=== PATIENT | female | born 1975 | race Hispanic/Latino ===

== ENCOUNTER 2016-08-13 18:30 | Emergency (ER) | payer SELFPAY ==
[2016-08-13] MEDS ORDERED: KETOROLAC 30 MG/ML VIAL (J1885) As Ordered ONE (19:43)
--- NOTE | 2016-08-13 20:30 | REPUSA ---
CT of the head Clinical history: Headache. Technique: Multiple axial CT images were obtained through the head without administration of contrast . Findings: The ventricles and sulci are symmetric bilaterally. There is no evidence of acute hemorrhag e or infarct. There is no midline shift, mass effect, or extra-axial fluid collection. The osseous st ructures are unremarkable. There is partial fluid opacification of the right sphenoid sinus. The othe r visualized paranasal sinuses and mastoid air cells are clear. Impression: No evidence of acute hemorrhage or infarct. Right sphenoid sinusitis.
--- NOTE | 2016-08-13 21:03 | EDDOCDS ---
Nurse's Notes [facility] Name: Tasneem Severino Age: 41 yrs Sex: Female : 1975 Arrival Date: 08/13/2016 Time: 18:30 Bed PR Private MD: NO PRIMARY PHYSICIAN, . Diagnosis: Headache;Acute sinusitis, unspecified Presentation: 08/13 18:36 Presenting complaint: Patient states: pain n head just today. fever for 7 days ( srm undocumented) no nausea or vomiting. dizzy. This patient has no additional risk factors. Adult Sepsis Screening: The patient does not have new or worsening altered mentation. Patient's respiratory rate is less than 22. Systolic blood pressure is greater than 100. Patient has a qSOFA score of 0- Negative Sepsis Screen. Suicide/Homicide risk assessment- the patient denies having any suicidal and/or homicidal ideations and does not present with any other emotional, behavioral or mental health complaints. Status: Patient is not a immigration services officer or dependent. Transition of care: patient was not received from another setting of care. 18:36 Acuity: AMAYA Level 3 srm 18:36 Method Of Arrival: Walkin/Carried/Asstd srm Triage Assessment: 18:39 Headache History: This patient does not have a history of previous headaches. General: srm Appears in no apparent distress, Behavior is appropriate for age, cooperative. Pain: Pain currently is 2 out of 10 on a pain scale. Pain began gradually Also complains of dizziness. HIV screening NA for this visit Offered previously. Neurological: Level of Consciousness is awake, alert, Oriented to person, place. 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 none - PMHx: none; - PSHx: ; Appendectomy; - Social history: Smoking status: Patient states was never smoker of tobacco. Preferred Language: Welsh. - Family history: Not pertinent. - : The pt / caregiver states he / she is not on anticoagulants. Home medication list is obtained from the patient. - Exposure Risk Screening:: None identified. Screenin:39 Language Barrier. rs6 21:02 Screening information is obtained from the patient. Fall risk: No risks identified. slm Assistance ADL's: requires no assistance with activities of daily living. Abuse/DV Screen: The patient / caregiver reports he/she is: not in a situation that causes fear, pain or injury. Nutritional screening: No deficits noted. Advance Directives: Currently, there is no health care proxy. There is no active DNR order. There is no living will. There is no Power of Stretcher Drier Operator. Advance directive information has not previously been placed in an [facility] medical record. Further advance directive information is declined. home support is adequate. Assessment: 21:01 General: Appears in no apparent distress, comfortable, Behavior is appropriate for age, slm cooperative. Pain: Location: face. Neurological: Level of Consciousness is awake, alert. Respiratory: No deficits noted. Derm: Skin is pink, warm & dry. Vital Signs: 18:34 BP 145 / 66 RA Sitting (auto/lg); Pulse 89; Resp 16; Temp 99.5(O); Pulse Ox 99% on R/A; rs6 Weight 72.57 kg (R); Height 5 ft. 2 in. (160 cm); 21:00 BP 132 / 62; Pulse 78; Resp 16; Pulse Ox 99% ; Pain 3/10; slm 18:34 Body Mass Index 28.35 (72.57 kg, 160 cm) [facility] Vitals: 18:34 Log In Time: August 13, 2016 at 18:34. [facility] ED Course: 18:32 Patient visited by Maryana Hicks PCA. rs6 18:32 NO PRIMARY PHYSICIAN, . is Private Physician. rs6 18:32 Patient moved to Waiting rs6 18:36 Patient visited by Maryana Hicks PCA. rs6 18:36 Patient moved to Pre RCE rs6 18:38 Triage Initiated srm 18:40 Patient moved to Triage 1 srm 19:15 [facility] Willard [facility] dt4 19:15 Osito Longo DO is Attending Physician. dt4 19:15 Patient visited by Jaycee Willard PA-C. dt4 19:49 [facility] Payment Agreement was scanned into [employer] and attached to record. ks16 19:57 Patient name changed from Tasneem\S\\S\Maycol\S\ to Tasneem\S\ \S\Maycol. EDMS 19:58 Patient moved to 2 slm 20:37 [facility] is Referral Physician. dt4 20:42 Patient moved to PD2 / 27 slm 20:43 Patient moved to PR1 / 25 sl 20:45 CT Head Without Contrast Returned. EDMS 21:00 Keisha Fine LPN is Primary Nurse. slm 21:02 Patient visited by Keisha Fine LPN. slm 21:02 The patient / caregiver is instructed regarding the plan of care and ED course. Patient slm has correct armband on for positive identification. Bed in low position. Call light in reach. 21:02 No IV's were initiated during this patient's visit. No procedures done that require slm assistance. Administered Medications: 19:49 Drug: ketorolac 60 mg [ketorolac 30 mg/mL (1 mL) injection solution (2 mL)] Route: IM; slm Site: right gluteus; Order Results: Radiology Order: CT Head Without Contrast Test: CT Head Without Contrast REASON FOR EXAMINATION: headache; ; CT of the head; Clinical history: Headache.; Technique: Multiple axial CT images were obtained through the head without administration of contrast; .; Findings: The ventricles and sulci are symmetric bilaterally. There is no evidence of acute hemorrhag; e or infarct. There is no midline shift, mass effect, or extra-axial fluid collection. The osseous st; ructures are unremarkable. There is partial fluid opacification of the right sphenoid sinus. The othe; r visualized paranasal sinuses and mastoid air cells are clear.; Impression: No evidence of acute hemorrhage or infarct. Right sphenoid sinusitis.; ; Outcome: 20:38 Discharge ordered by Provider. dt4 21:01 Discharge Assessment: Patient awake, alert and oriented x 3. No cognitive and/or slm functional deficits noted. Patient verbalized understanding of disposition instructions. patient administered narcotics - no. The following High Risk Discharge criteria are identified: None. Discharged to home ambulatory. Condition: good. Discharge instructions given to patient, Instructed on discharge instructions, follow up and referral plans. medication usage, Demonstrated understanding of instructions, medications, Pt was receptive of discharge instructions/ teaching. Prescriptions given X 2. CT Study completed. Property :Personal belongings accompany Pt. 21:02 Patient left the ED. slm Signatures: Dispatcher [employer] EDMS Mihaela Smith, TARIQ RN Keisha Boone,RN ORTHOPEDIC RN ORTHOPEDIC m Jaycee Willard PA-C PA-C dt4 Maryana Hicks, NEWSPAPER REPORTER NEWSPAPER REPORTER rs6 Celena Gillespie, Reg Reg ks16 MTDD
--- NOTE | 2016-08-13 21:03 | EDDOCDS ---
Physician Documentation [facility] Name: Tasneem Severino Age: 41 yrs Sex: Female : 1975 Arrival Date: 08/13/2016 Time: 18:30 Bed PR1 / 25 Private MD: NO PRIMARY PHYSICIAN, . Disposition: 08/13/16 20:38 Discharged to Home/Self Care. Impression: Headache, Acute sinusitis, unspecified. - Condition is Stable. - Discharge Instructions: General Headache Without Cause, Sinusitis, Adult. - Prescriptions for Augmentin 875- 125 mg Oral Tablet - take 1 tablet by ORAL route every 12 hours for 7 days; 14 tablet. Naprosyn 500 mg Oral Tablet - take 1 tablet by ORAL route every 12 hours As needed take with food; 30 tablet. - Medication Reconciliation, Local Pharmacy Hours form. - Follow up: Emergency Department; When: As needed; Reason: Worsening of conditions. [facility]: [facility]; When: Call to arrange an appointment; Reason: Recheck today's complaints, Continuance of care, To establish care. - Problem is new. - Symptoms have improved. Historical: - Allergies: no known allergies; - Home Meds: 1. none - PMHx: none; - PSHx: ; Appendectomy; - Social history: Smoking status: Patient states was never smoker of tobacco. Preferred Language: Colombian. - Family history: Not pertinent. - : The pt / caregiver states he / she is not on anticoagulants. Home medication list is obtained from the patient. - Exposure Risk Screening:: None identified. 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 2 in. (160 cm); 21:00 BP 132 / 62; Pulse 78; Resp 16; Pulse Ox 99% ; Pain 3/10; slm 18:34 Body Mass Index 28.35 (72.57 kg, 160 cm) rs6 MDM: 19:38 ketorolac 60 mg IM once ordered. dt4 19:38 Financial registration complete. ks16 19:38 CT Head Without Contrast Ordered. EDMS 19:49 [facility] Payment Agreement was scanned into [employer] and attached to record. [email or web address] Administered Medications: 19:49 Drug: ketorolac 60 mg [ketorolac 30 mg/mL (1 mL) injection solution (2 mL)] Route: IM; slm Site: right gluteus; Signatures: Dispatcher [employer] EDMS Mihaela Smith RN RN Keisha Boone,SUSY COMPONENT DESIGN ENGINEER [facility] Jaycee Willard PA-C PAAlicia dt4 Celena Gillespie, Reg Reg ks16 The chart was reviewed and I authenticate all verbal orders and agree with the evaluation and treatment provided.Attachments: 19:49 [facility] Payment Agreement [email or web address] MTDD
--- NOTE | 2016-08-15 22:03 | EDDOCDS ---
Physician Documentation [facility] Name: Tasneem Severino Age: 41 yrs Sex: Female : 1975 Arrival Date: 08/13/2016 Time: 18:30 Bed PR1 / 25 Private MD: NO PRIMARY PHYSICIAN, . Disposition: 08/13/16 20:38 Discharged to Home/Self Care. Impression: Headache, Acute sinusitis, unspecified. - Condition is Stable. - Discharge Instructions: General Headache Without Cause, Sinusitis, Adult. - Prescriptions for Augmentin 875- 125 mg Oral Tablet - take 1 tablet by ORAL route every 12 hours for 7 days; 14 tablet. Naprosyn 500 mg Oral Tablet - take 1 tablet by ORAL route every 12 hours As needed take with food; 30 tablet. - Medication Reconciliation, Local Pharmacy Hours form. - Follow up: Emergency Department; When: As needed; Reason: Worsening of conditions. [facility]: [facility]; When: Call to arrange an appointment; Reason: Recheck today's complaints, Continuance of care, To establish care. - Problem is new. - Symptoms have improved. Historical: - Allergies: no known allergies; - Home Meds: 1. none - PMHx: none; - PSHx: ; Appendectomy; - Social history: Smoking status: Patient states was never smoker of tobacco. Preferred Language: Micronesian. - Family history: Not pertinent. - : The pt / caregiver states he / she is not on anticoagulants. Home medication list is obtained from the patient. - Exposure Risk Screening:: None identified. 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 2 in. (160 cm); 21:00 BP 132 / 62; Pulse 78; Resp 16; Pulse Ox 99% ; Pain 3/10; slm 18:34 Body Mass Index 28.35 (72.57 kg, 160 cm) rs6 MDM: 19:38 ketorolac 60 mg IM once ordered. dt4 19:38 Financial registration complete. ks16 19:38 CT Head Without Contrast Ordered. EDMS 19:49 [facility] Payment Agreement was scanned into [employer] and attached to record. [email or web address] 08/14 10:52 T-Sheet-- Draft Copy was scanned into [employer] and attached to record. gb Administered Medications: 08/13 19:49 Drug: ketorolac 60 mg [ketorolac 30 mg/mL (1 mL) injection solution (2 mL)] Route: IM; slm Site: right gluteus; Signatures: Dispatcher [employer] EDMS Mihaela Smith, RN RN [facility] Micki Ojeda, Reg Reg gb Keisha Fine LPN FURNITURE DETAILER slm Jaycee Willard PA-C PA-C dt4 Celena Gillespie, Reg Reg ks16 The chart was reviewed and I authenticate all verbal orders and agree with the evaluation and treatment provided.Attachments: 19:49 [facility] Payment Agreement [email or web address] 08/14 10:52 T-Sheet-- Draft Copy gb Chart Complete MTDD
--- NOTE | 2016-08-15 22:03 | EDDOCDS ---
[facility] Name: Tasneem Severino Age: 41 yrs Sex: Female : 1975 Arrival Date: 08/13/2016 Time: 18:30 Bed PR Private MD: NO PRIMARY PHYSICIAN, . Diagnosis: Headache;Acute sinusitis, unspecified Presentation: 08/13 18:36 Presenting complaint: Patient states: pain n head just today. fever for 7 days ( srm undocumented) no nausea or vomiting. dizzy. This patient has no additional risk factors. Adult Sepsis Screening: The patient does not have new or worsening altered mentation. Patient's respiratory rate is less than 22. Systolic blood pressure is greater than 100. Patient has a qSOFA score of 0- Negative Sepsis Screen. Suicide/Homicide risk assessment- the patient denies having any suicidal and/or homicidal ideations and does not present with any other emotional, behavioral or mental health complaints. Status: Patient is not a seed service advisor or dependent. Transition of care: patient was not received from another setting of care. 18:36 Acuity: AMAYA Level 3 srm 18:36 Method Of Arrival: Walkin/Carried/Asstd srm Triage Assessment: 18:39 Headache History: This patient does not have a history of previous headaches. General: srm Appears in no apparent distress, Behavior is appropriate for age, cooperative. Pain: Pain currently is 2 out of 10 on a pain scale. Pain began gradually Also complains of dizziness. HIV screening NA for this visit Offered previously. Neurological: Level of Consciousness is awake, alert, Oriented to person, place. 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 none - PMHx: none; - PSHx: ; Appendectomy; - Social history: Smoking status: Patient states was never smoker of tobacco. Preferred Language: Yoruba. - Family history: Not pertinent. - : The pt / caregiver states he / she is not on anticoagulants. Home medication list is obtained from the patient. - Exposure Risk Screening:: None identified. Screenin:39 Language Barrier. rs6 21:02 Screening information is obtained from the patient. Fall risk: No risks identified. slm Assistance ADL's: requires no assistance with activities of daily living. Abuse/DV Screen: The patient / caregiver reports he/she is: not in a situation that causes fear, pain or injury. Nutritional screening: No deficits noted. Advance Directives: Currently, there is no health care proxy. There is no active DNR order. There is no living will. There is no Power of Bi Technical Lead. Advance directive information has not previously been placed in an [facility] medical record. Further advance directive information is declined. home support is adequate. Assessment: 21:01 General: Appears in no apparent distress, comfortable, Behavior is appropriate for age, slm cooperative. Pain: Location: face. Neurological: Level of Consciousness is awake, alert. Respiratory: No deficits noted. Derm: Skin is pink, warm & dry. Vital Signs: 18:34 BP 145 / 66 RA Sitting (auto/lg); Pulse 89; Resp 16; Temp 99.5(O); Pulse Ox 99% on R/A; rs6 Weight 72.57 kg (R); Height 5 ft. 2 in. (160 cm); 21:00 BP 132 / 62; Pulse 78; Resp 16; Pulse Ox 99% ; Pain 3/10; slm 18:34 Body Mass Index 28.35 (72.57 kg, 160 cm) [facility] Vitals: 18:34 Log In Time: August 13, 2016 at 18:34. [facility] ED Course: 18:32 Patient visited by Maryana Hicks PCA. rs6 18:32 NO PRIMARY PHYSICIAN, . is Private Physician. rs6 18:32 Patient moved to Waiting rs6 18:36 Patient visited by Maryana Hicks PCA. rs6 18:36 Patient moved to Pre RCE rs6 18:38 Triage Initiated srm 18:40 Patient moved to Triage 1 srm 19:15 [facility] dt4 19:15 Osito Longo DO is Attending Physician. dt4 19:15 Patient visited by Jaycee Willard PA-C. dt4 19:49 [facility] Payment Agreement was scanned into [employer] and attached to record. ks16 19:57 Patient name changed from Tasneem\S\\S\Maycol\S\ to Tasneem\S\ \S\Maycol. EDMS 19:58 Patient moved to 2 slm 20:37 [facility] is Referral Physician. dt4 20:42 Patient moved to PD2 / 27 slm 20:43 Patient moved to PR1 / 25 slm 20:45 CT Head Without Contrast Returned. EDMS 21:00 Keisha Fine LPN is Primary Nurse. slm 21:02 Patient visited by Keisha Fine LPN. slm 21:02 The patient / caregiver is instructed regarding the plan of care and ED course. Patient slm has correct armband on for positive identification. Bed in low position. Call light in reach. 21:02 No IV's were initiated during this patient's visit. No procedures done that require slm assistance. 08/14 10:52 T-Sheet-- Draft Copy was scanned into [employer] and attached to record. gb Administered Medications: 08/13 19:49 Drug: ketorolac 60 mg [ketorolac 30 mg/mL (1 mL) injection solution (2 mL)] Route: IM; slm Site: right gluteus; Order Results: Radiology Order: CT Head Without Contrast Test: CT Head Without Contrast REASON FOR EXAMINATION: headache; ; CT of the head; Clinical history: Headache.; Technique: Multiple axial CT images were obtained through the head without administration of contrast; .; Findings: The ventricles and sulci are symmetric bilaterally. There is no evidence of acute hemorrhag; e or infarct. There is no midline shift, mass effect, or extra-axial fluid collection. The osseous st; ructures are unremarkable. There is partial fluid opacification of the right sphenoid sinus. The othe; r visualized paranasal sinuses and mastoid air cells are clear.; Impression: No evidence of acute hemorrhage or infarct. Right sphenoid sinusitis.; ; Outcome: 20:38 Discharge ordered by Provider. dt4 21:01 Discharge Assessment: Patient awake, alert and oriented x 3. No cognitive and/or slm functional deficits noted. Patient verbalized understanding of disposition instructions. patient administered narcotics - no. The following High Risk Discharge criteria are identified: None. Discharged to home ambulatory. Condition: good. Discharge instructions given to patient, Instructed on discharge instructions, follow up and referral plans. medication usage, Demonstrated understanding of instructions, medications, Pt was receptive of discharge instructions/ teaching. Prescriptions given X 2. CT Study completed. Property :Personal belongings accompany Pt. 21:02 Patient left the ED. slm Signatures: Dispatcher [employer] EDMS Mihaela Smith, RN RN [facility] Micki Ojeda, Reg Reg gb Keisha Fine,DRAGLINE ENGINEER DRAGLINE ENGINEER slJaycee Marie PA-C PAAlicia dt4 Maryana Hicks, BLANCHING MACHINE OPERATOR BLANCHING MACHINE OPERATOR rs6 Celena Gillespie, Reg Reg ks16 Chart Complete MTDD
--- NOTE | 2016-08-15 22:03 | EDDOCDS ---
Physician Documentation [facility] Name: Tasneem Severino Age: 41 yrs Sex: Female : 1975 Arrival Date: 08/13/2016 Time: 18:30 Bed PR1 / 25 Private MD: NO PRIMARY PHYSICIAN, . Disposition: 08/13/16 20:38 Discharged to Home/Self Care. Impression: Headache, Acute sinusitis, unspecified. - Condition is Stable. - Discharge Instructions: General Headache Without Cause, Sinusitis, Adult. - Prescriptions for Augmentin 875- 125 mg Oral Tablet - take 1 tablet by ORAL route every 12 hours for 7 days; 14 tablet. Naprosyn 500 mg Oral Tablet - take 1 tablet by ORAL route every 12 hours As needed take with food; 30 tablet. - Medication Reconciliation, Local Pharmacy Hours form. - Follow up: Emergency Department; When: As needed; Reason: Worsening of conditions. Follow [facility]: [facility]; When: Call to arrange an appointment; Reason: Recheck today's complaints, Continuance of care, To establish care. - Problem is new. - Symptoms have improved. Historical: - Allergies: no known allergies; - Home Meds: 1. none - PMHx: none; - PSHx: ; Appendectomy; - Social history: Smoking status: Patient states was never smoker of tobacco. Preferred Language: Grenadian. - Family history: Not pertinent. - : The pt / caregiver states he / she is not on anticoagulants. Home medication list is obtained from the patient. - Exposure Risk Screening:: None identified. 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 2 in. (160 cm); 21:00 BP 132 / 62; Pulse 78; Resp 16; Pulse Ox 99% ; Pain 3/10; slm 18:34 Body Mass Index 28.35 (72.57 kg, 160 cm) rs6 MDM: 19:38 ketorolac 60 mg IM once ordered. dt4 19:38 Financial registration complete. ks16 19:38 CT Head Without Contrast Ordered. EDMS 19:49 [facility] Payment Agreement was scanned into [employer] and attached to record. [email or web address] 08/14 10:52 T-Sheet-- Draft Copy was scanned into [employer] and attached to record. gb Administered Medications: 08/13 19:49 Drug: ketorolac 60 mg [ketorolac 30 mg/mL (1 mL) injection solution (2 mL)] Route: IM; slm Site: right gluteus; Signatures: Dispatcher [employer] EDMS Mihaela Smith, RN RN [facility] Micki Ojeda, Reg Reg gb Keisha Fine LPN JACK SPOOLER TENDER slm Jaycee Willard PA-C PA-C dt4 Celena Gillespie, Reg Reg ks16 The chart was reviewed and I authenticate all verbal orders and agree with the evaluation and treatment provided.Attachments: 19:49 [facility] Payment Agreement [email or web address] 08/14 10:52 T-Sheet-- Draft Copy gb Chart Complete MTDD
== END 2016-08-13 21:02 | disposition home or self-care (01) ==
LOC: M ED 18:30
DX: J01.30 Acute sphenoidal sinusitis, unspecified (principal); R51 Headache
CPT/HCPCS: 70450; 96372; 99284; J1885

== ENCOUNTER 2016-08-28 22:25 | Emergency (ER) | payer SELFPAY ==
[2016-08-29] MEDS ORDERED: predniSONE 20 MG TAB As Ordered ONE (00:03)
--- NOTE | 2016-08-29 00:12 | EDDOCDS ---
Nurse's Notes [facility] Name: Tasneem Severino Age: 41 yrs Sex: Female : 1975 Arrival Date: 08/28/2016 Time: 22:25 Bed Triage 1 Private MD: Diagnosis: Acute upper respiratory infections of multiple and unspecified sites;Acute frontal sinusitis-recheck Presentation: 08/28 22:34 Presenting complaint:. rs3 22:38 Presenting complaint: Patient states: fever, breathing difficulty, dizziness today. rs3 Adult Sepsis Screening: The patient does not have new or worsening altered mentation. Patient's respiratory rate is less than 22. Systolic blood pressure is greater than 100. Patient has a qSOFA score of 0- Negative Sepsis Screen. Suicide/Homicide risk assessment- the patient denies having any suicidal and/or homicidal ideations and does not present with any other emotional, behavioral or mental health complaints. Status: Patient is not a electric refrigerator servicer or dependent. Transition of care: patient was not received from another setting of care. 22:38 Acuity: AMAYA Level 4 rs3 22:38 Method Of Arrival: Walkin/Carried/Asstd rs3 22:41 Presenting complaint: Patient states: fevers, dizziness. Reports shortness of breath. nn1 States she was on antibiotics x 7 days, reports no improvement in condition. Reports she was on amoxicillin. States she has been having body aches and trouble sleeping, as well as feeling like her heart is pounding intermittently. Triage Assessment: 22:39 General: Appears in no apparent distress. Pain: Denies pain. HIV screening NA for this rs3 visit Offered previously. Respiratory: Onset: The symptoms/episode began/occurred gradually. 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 none - PMHx: none; - PSHx: ; Appendectomy; - Social history: Smoking status: Patient states was never smoker of tobacco. No barriers to communication noted, The patient speaks fluent Belarusian. - Family history: Not pertinent. - : The pt / caregiver states he / she is not on anticoagulants. Home medication list is obtained from the patient. - Exposure Risk Screening:: None identified. Screenin:09 Screening information is obtained from the patient. Fall risk: No risks identified. jmb Assistance ADL's: requires no assistance with activities of daily living. Abuse/DV Screen: The patient / caregiver reports he/she is: not in a situation that causes fear, pain or injury. Nutritional screening: No deficits noted. Advance Directives: Currently, there is no health care proxy. There is no active DNR order. There is no living will. There is no Power of Nail Galvanizer. home support is adequate. Assessment: 00:09 General: Patient instructed on discharge instructions. Patient asked if there were any b questions regarding discharge, patient stated no. Patient signed discharge instructions. Patient discharged in stable condition. . Cardiovascular: No deficits noted. Respiratory: Airway is patent Respiratory effort is even, unlabored, Respiratory pattern is regular, Breath sounds are diminished bilaterally. Vital Signs: 08/28 22:26 BP 126 / 69; Pulse 85; Resp 20; Temp 96.4(O); Pulse Ox 100% on R/A; Weight 79.2 kg (M); kb5 Height 5 ft. 2 in. (160 cm) (M); Pain 0/10; 08/29 00:09 BP 120 / 60; Pulse 70; Resp 18; Temp 96.7(O); Pulse Ox 98% on R/A; Pain 0/10; jmb 08/28 22:26 Body Mass Index 30.94 (79.20 kg, 160 cm) kb5 Vitals: 08/28 22:40 Log In Time: August 28, 2016 at 22:25. rs3 ED Course: 22:26 Patient visited by Eloy Harding PCA. kb5 22:26 Patient moved to Waiting kb5 22:30 Patient visited by Eloy Harding PCA. kb5 22:33 Patient moved to Pre RCE rs3 22:39 Triage Initiated rs3 23:51 Patient moved to Triage 1 jmb 23:56 [facility] cc10 23:56 Elbert Zarate DO is Attending Physician. cc10 23:57 Patient visited by Ryan Vega PA-C. cc10 23:57 Patient visited by Ryan Vega PA-C. cc10 08/29 00:03 [facility] is Referral Physician. cc10 00:09 The patient / caregiver is instructed regarding the plan of care and ED course. jmb 00:09 No IV's were initiated during this patient's visit. No procedures done that require jmb assistance. Administered Medications: 00:05 Drug: predniSONE 40 mg [prednisone 20 mg tablet (2 tabs)] Route: PO; jmb Order Results: There are currently no results for this order. Outcome: 00:03 Discharge ordered by Provider. cc10 00:09 Discharge Assessment: Patient awake, alert and oriented x 3. No cognitive and/or jmb functional deficits noted. Patient verbalized understanding of disposition instructions. Patient awake and alert. obeys commands, Oriented to person, place and time. Patient verbalized understanding of disposition instructions. Patient has no functional deficits. patient administered narcotics - no. The following High Risk Discharge criteria are identified: None. Discharged to home ambulatory. Condition: stable Condition: improved. No special radiology studies were completed. Property sent home with patient. 00:12 Patient left the ED. jmb Signatures: Eloy Harding, POPULATION GENETICIST POPULATION GENETICIST kb5 Vane Guevara,RN RN rs3 Julio César GerardRN RN jmb Ryan Vega, PA-C PA-C cc10 Cooper Rodriguez,RN RN nn1 Corrections: (The following items were deleted from the chart) 08/28 22:43 22:41 Presenting complaint: Patient states: fevers, dizziness. Reports shortness of nn1 breath. States she was on antibiotics x 7 days, reports no improvement in condition. nn1 22:43 22:41 Presenting complaint: Patient states: fevers, dizziness. Reports shortness of nn1 breath. States she was on antibiotics x 7 days, reports no improvement in condition. Reports she was on amoxicillin. nn1 MTDD
--- NOTE | 2016-08-29 00:12 | EDDOCDS ---
Physician Documentation [facility] Name: Tasneem Severino Age: 41 yrs Sex: Female : 1975 Arrival Date: 08/28/2016 Time: 22:25 Bed Triage 1 Private MD: Disposition: 08/29/16 00:03 Discharged to Home/Self Care. Impression: Acute upper respiratory infections of multiple and unspecified sites, Acute frontal sinusitis - recheck. - Condition is Stable. - Discharge Instructions: Sinus Headache, Viral Infections, [id number]. - Prescriptions for Prednisone 20 mg Oral Tablet - take 2 tablet by ORAL route once daily for 5 days; 10 tablet. Fluticasone 50 mcg/actuation Nasal [place], Suspension - inhale 1 spray by INTRANASAL route 2 times per day; 1 bottle. Doxycycline Hyclate 100 mg Oral Tablet - take 1 tablet by ORAL route every 12 hours; 20 tablet. - Medication Reconciliation, Local Pharmacy Hours form. - [facility]; When: Call to arrange an appointment; Reason: To establish care. - Problem is an ongoing problem. - Symptoms are unchanged. Historical: - Allergies: no known allergies; - Home Meds: 1. none - PMHx: none; - PSHx: ; Appendectomy; - Social history: Smoking status: Patient states was never smoker of tobacco. No barriers to communication noted, The patient speaks fluent Bermudian. - Family history: Not pertinent. - : The pt / caregiver states he / she is not on anticoagulants. Home medication list is obtained from the patient. - Exposure Risk Screening:: None identified. 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 2 in. (160 cm) (M); Pain 0/10; 08/29 00:09 BP 120 / 60; Pulse 70; Resp 18; Temp 96.7(O); Pulse Ox 98% on R/A; Pain 0/10; claudia 08/28 22:26 Body Mass Index 30.94 (79.20 kg, 160 cm) kb5 MDM: 00:02 predniSONE 40 mg PO once; administer with food or milk ordered. cc10 Administered Medications: 00:05 Drug: predniSONE 40 mg [prednisone 20 mg tablet (2 tabs)] Route: PO; claudia Signatures: Vane GuevaraRN RN rs3 Julio César Gerard RN RN amarilysb Ryan Vega, PAMichealC PAAlicia cc10 MTDD
--- NOTE | 2016-08-31 01:12 | EDDOCDS ---
Nurse's Notes [facility] Name: Tasneem Severino Age: 41 yrs Sex: Female : 1975 Arrival Date: 08/28/2016 Time: 22:25 Bed Triage 1 Private MD: Diagnosis: Acute upper respiratory infections of multiple and unspecified sites;Acute frontal sinusitis-recheck Presentation: 08/28 22:34 Presenting complaint:. rs3 22:38 Presenting complaint: Patient states: fever, breathing difficulty, dizziness today. rs3 Adult Sepsis Screening: The patient does not have new or worsening altered mentation. Patient's respiratory rate is less than 22. Systolic blood pressure is greater than 100. Patient has a qSOFA score of 0- Negative Sepsis Screen. Suicide/Homicide risk assessment- the patient denies having any suicidal and/or homicidal ideations and does not present with any other emotional, behavioral or mental health complaints. Status: Patient is not a environmental services tech or dependent. Transition of care: patient was not received from another setting of care. 22:38 Acuity: AMAYA Level 4 rs3 22:38 Method Of Arrival: Walkin/Carried/Asstd rs3 22:41 Presenting complaint: Patient states: fevers, dizziness. Reports shortness of breath. nn1 States she was on antibiotics x 7 days, reports no improvement in condition. Reports she was on amoxicillin. States she has been having body aches and trouble sleeping, as well as feeling like her heart is pounding intermittently. Triage Assessment: 22:39 General: Appears in no apparent distress. Pain: Denies pain. HIV screening NA for this rs3 visit Offered previously. Respiratory: Onset: The symptoms/episode began/occurred gradually. 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 none - PMHx: none; - PSHx: ; Appendectomy; - Social history: Smoking status: Patient states was never smoker of tobacco. No barriers to communication noted, The patient speaks fluent Estonian. - Family history: Not pertinent. - : The pt / caregiver states he / she is not on anticoagulants. Home medication list is obtained from the patient. - Exposure Risk Screening:: None identified. Screenin:09 Screening information is obtained from the patient. Fall risk: No risks identified. jmb Assistance ADL's: requires no assistance with activities of daily living. Abuse/DV Screen: The patient / caregiver reports he/she is: not in a situation that causes fear, pain or injury. Nutritional screening: No deficits noted. Advance Directives: Currently, there is no health care proxy. There is no active DNR order. There is no living will. There is no Power of Acquisition Analyst. home support is adequate. Assessment: 00:09 General: Patient instructed on discharge instructions. Patient asked if there were any b questions regarding discharge, patient stated no. Patient signed discharge instructions. Patient discharged in stable condition. . Cardiovascular: No deficits noted. Respiratory: Airway is patent Respiratory effort is even, unlabored, Respiratory pattern is regular, Breath sounds are diminished bilaterally. Vital Signs: 08/28 22:26 BP 126 / 69; Pulse 85; Resp 20; Temp 96.4(O); Pulse Ox 100% on R/A; Weight 79.2 kg (M); kb5 Height 5 ft. 2 in. (160 cm) (M); Pain 0/10; 08/29 00:09 BP 120 / 60; Pulse 70; Resp 18; Temp 96.7(O); Pulse Ox 98% on R/A; Pain 0/10; jmb 08/28 22:26 Body Mass Index 30.94 (79.20 kg, 160 cm) kb5 Vitals: 08/28 22:40 Log In Time: August 28, 2016 at 22:25. rs3 ED Course: 22:26 Patient visited by Eloy Harding PCA. kb5 22:26 Patient moved to Waiting kb5 22:30 Patient visited by Eloy Harding PCA. kb5 22:33 Patient moved to Pre RCE rs3 22:39 Triage Initiated rs3 23:51 Patient moved to Triage 1 jmb 23:56 Ryan [facility]C [facility]. cc10 23:56 Elbert Zarate DO is Attending Physician. cc10 23:57 Patient visited by Ryan Vega PA-C. cc10 23:57 Patient visited by Ryan Vega PA-C. cc10 08/29 00:03 [facility] is Referral Physician. cc10 00:09 The patient / caregiver is instructed regarding the plan of care and ED course. jmb 00:09 No IV's were initiated during this patient's visit. No procedures done that require jmb assistance. 01:59 Patient name changed from Tasneem\S\\S\Maycol\S\ to Tasneem\S\ \S\Maycol. EDDC 10:22 T-Sheet-- Draft Copy was scanned into [employer] and attached to record. gb Administered Medications: 00:05 Drug: predniSONE 40 mg [prednisone 20 mg tablet (2 tabs)] Route: PO; jmb Order Results: There are currently no results for this order. Outcome: 00:03 Discharge ordered by Provider. cc10 00:09 Discharge Assessment: Patient awake, alert and oriented x 3. No cognitive and/or jmb functional deficits noted. Patient verbalized understanding of disposition instructions. Patient awake and alert. obeys commands, Oriented to person, place and time. Patient verbalized understanding of disposition instructions. Patient has no functional deficits. patient administered narcotics - no. The following High Risk Discharge criteria are identified: None. Discharged to home ambulatory. Condition: stable Condition: improved. No special radiology studies were completed. Property sent home with patient. 00:12 Patient left the ED. jmb Signatures: Dispatcher [facility] EDDC LynetteGloriaMicki, Reg Reg gb [place] Eloy, HOME HEALTH CNA HOME HEALTH CNA kb5 Vane Guevara,TARIQ POTTER rs3 Julio César Gerard, RN RN Ryan Clarke, PA-C PA-C cc10 Cooper Rodriguez,RN RN nn1 Corrections: (The following items were deleted from the chart) 08/28 22:43 22:41 Presenting complaint: Patient states: fevers, dizziness. Reports shortness of nn1 breath. States she was on antibiotics x 7 days, reports no improvement in condition. nn1 22:43 22:41 Presenting complaint: Patient states: fevers, dizziness. Reports shortness of nn1 breath. States she was on antibiotics x 7 days, reports no improvement in condition. Reports she was on amoxicillin. nn1 Chart Complete MTDD
--- NOTE | 2016-08-31 01:12 | EDDOCDS ---
Physician Documentation [facility] Name: Tasneem Severino Age: 41 yrs Sex: Female : 1975 Arrival Date: 08/28/2016 Time: 22:25 Bed Triage 1 Private MD: Disposition: 08/29/16 00:03 Discharged to Home/Self Care. Impression: Acute upper respiratory infections of multiple and unspecified sites, Acute frontal sinusitis - recheck. - Condition is Stable. - Discharge Instructions: Sinus Headache, Viral Infections, Kdst-Ln-Jxwn. - Prescriptions for Prednisone 20 mg Oral Tablet - take 2 tablet by ORAL route once daily for 5 days; 10 tablet. Fluticasone 50 mcg/actuation Nasal [place], Suspension - inhale 1 spray by INTRANASAL route 2 times per day; 1 bottle. Doxycycline Hyclate 100 mg Oral Tablet - take 1 tablet by ORAL route every 12 hours; 20 tablet. - Medication Reconciliation, Local Pharmacy Hours form. - [facility]; When: Call to arrange an appointment; Reason: To establish care. - Problem is an ongoing problem. - Symptoms are unchanged. Historical: - Allergies: no known allergies; - Home Meds: 1. none - PMHx: none; - PSHx: ; Appendectomy; - Social history: Smoking status: Patient states was never smoker of tobacco. No barriers to communication noted, The patient speaks fluent Haitian. - Family history: Not pertinent. - : The pt / caregiver states he / she is not on anticoagulants. Home medication list is obtained from the patient. - Exposure Risk Screening:: None identified. 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 2 in. (160 cm) (M); Pain 0/10; 08/29 00:09 BP 120 / 60; Pulse 70; Resp 18; Temp 96.7(O); Pulse Ox 98% on R/A; Pain 0/10; claudia 08/28 22:26 Body Mass Index 30.94 (79.20 kg, 160 cm) kb5 MDM: 00:02 predniSONE 40 mg PO once; administer with food or milk ordered. cc10 01:[address] [facility] 10:22 T-Sheet-- Draft Copy was scanned into [employer] and attached to record. gb Administered Medications: 00:05 Drug: predniSONE 40 mg [prednisone 20 mg tablet (2 tabs)] Route: PO; claudia Signatures: Micki Ojeda, Reg Reg gb Vane Guevara,RN RN rs3 Julio César Gerard RN RN jmb Ryan Vega, PA-C PA-C cc10 Migd[address] [facility] The chart was reviewed and I authenticate all verbal orders and agree with the evaluation and treatment provided.Attachments: 10:22 T-Sheet-- Draft Copy gb Chart Complete MTDD
--- NOTE | 2016-08-31 01:12 | EDDOCDS ---
Physician Documentation [facility] Name: Tasneem Severino Age: 41 yrs Sex: Female : 1975 Arrival Date: 08/28/2016 Time: 22:25 Bed Triage 1 Private MD: Disposition: 08/29/16 00:03 Discharged to Home/Self Care. Impression: Acute upper respiratory infections of multiple and unspecified sites, Acute frontal sinusitis - recheck. - Condition is Stable. - Discharge Instructions: Sinus Headache, Viral Infections, Xnnf-Ir-Aile. - Prescriptions for Prednisone 20 mg Oral Tablet - take 2 tablet by ORAL route once daily for 5 days; 10 tablet. Fluticasone 50 mcg/actuation Nasal [place], Suspension - inhale 1 spray by INTRANASAL route 2 times per day; 1 bottle. Doxycycline Hyclate 100 mg Oral Tablet - take 1 tablet by ORAL route every 12 hours; 20 tablet. - Medication Reconciliation, Local Pharmacy Hours form. - Follow up: [facility]; When: Call to arrange an appointment; Reason: To establish care. - Problem is an ongoing problem. - Symptoms are unchanged. Historical: - Allergies: no known allergies; - Home Meds: 1. none - PMHx: none; - PSHx: ; Appendectomy; - Social history: Smoking status: Patient states was never smoker of tobacco. No barriers to communication noted, The patient speaks fluent Ecuadorean. - Family history: Not pertinent. - : The pt / caregiver states he / she is not on anticoagulants. Home medication list is obtained from the patient. - Exposure Risk Screening:: None identified. 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 2 in. (160 cm) (M); Pain 0/10; 08/29 00:09 BP 120 / 60; Pulse 70; Resp 18; Temp 96.7(O); Pulse Ox 98% on R/A; Pain 0/10; claudia 08/28 22:26 Body Mass Index 30.94 (79.20 kg, 160 cm) kb5 MDM: 00:02 predniSONE 40 mg PO once; administer with food or milk ordered. cc10 01:56 Financial registration complete. [facility] 10:22 T-Sheet-- Draft Copy was scanned into [address] and attached to record. gb Administered Medications: 00:05 Drug: predniSONE 40 mg [prednisone 20 mg tablet (2 tabs)] Route: PO; claudia Signatures: Micki Ojeda, Reg Reg gb Vane Guevara,RN RN rs3 Julio César Gerard RN RN jmb Ryan Vega, PA-C PA-C cc10 Migdalia Arellano [facility] The chart was reviewed and I authenticate all verbal orders and agree with the evaluation and treatment provided.Attachments: 10:22 T-Sheet-- Draft Copy gb Chart Complete MTDD
== END 2016-08-29 00:12 | disposition home or self-care (01) ==
LOC: M ED 22:25
DX: J06.9 Acute upper respiratory infection, unspecified (principal); J01.90 Acute sinusitis, unspecified

== ENCOUNTER 2016-10-01 02:06 | Emergency (ER) | payer BC, SELFPAY ==
[2016-10-01] MEDS ORDERED: NS 1,000 ML IV ONE (03:15)
[2016-10-01] MEDS ORDERED: ASPIRIN 81 MG CHEW TABLET PO ONE (03:15)
[2016-10-01 03:21] LABS: BASO % 0.5 % (0.0-1.0); EOS # 0.5 K/mm3 (0.0-0.50); LARGE UNSTAINED CELL # 0.2 K/mm3 (0.0-0.4); LARGE UNSTAINED CELL % 1.6 % (0.0-4.0); LYMPH # 3.4 K/mm3 (1.5-4.5); LYMPH % 32.1 % (24.0-44.0); MEAN CORPUSCULAR HEMOGLOBIN 28.5 pg (27.0-33.0); MEAN CORPUSCULAR HGB CONC 32.3 g/dl (32.0-36.5); MEAN CORPUSCULAR VOLUME 88.2 fl (80.0-96.0); MONO # 0.6 K/mm3 (0.0-0.8); MONO % 5.5 % (0.0-5.0); NEUTROPHILS # 5.5 K/mm3 (1.8-7.7); NEUTROPHILS % 55.4 % (36.0-66.0); PLATELET COUNT, AUTOMATED 329 k/mm3 (150-450)
[2016-10-01 03:24] LABS: CONTROL LINE HCG INT CTR LINE PRESENT
[2016-10-01 03:33] LABS: ANION GAP 8 MEQ/L (8-16); BLOOD UREA NITROGEN 8 MG/DL (7-18); CALCIUM LEVEL 7.9 MG/DL (8.5-10.1); CARBON DIOXIDE LEVEL 27 MEQ/L (21-32); CHLORIDE LEVEL 106 MEQ/L (98-107); CREATININE FOR GFR 0.76 MG/DL (0.55-1.02); GLOMERULAR FILTRATION RATE > 60.0 (>58); GLUCOSE, FASTING 115 MG/DL (70-105); POTASSIUM SERUM 3.2 MEQ/L (3.5-5.1); SODIUM LEVEL 141 MEQ/L (136-145)
[2016-10-01 04:00] LABS: MAGNESIUM LEVEL 2.2 MG/DL (1.8-2.4)
[2016-10-01] MEDS ORDERED: POTASSIUM CHLORIDE 10 MEQ SR TABLET PO ONE (06:45)
--- NOTE | 2016-10-01 09:12 | REP ---
Clinical: Chest pain . Comparison: 06/01/2016 . Technique: PA and lateral. Findings: The mediastinum and cardiac silhouette are normal. The lung pyaton are clear and without acute consolidation, effusion, or pneumothorax. The skeletal structures are intact and normal. Impression: 1. No acute cardiopulmonary process. Signed by Jose Woodson MD 10/01/2016 09:03 A
[2016-10-01 09:24] VITALS: BP 123/62
--- NOTE | 2016-10-02 09:13 | ECGEPIP ---
Stationary ECG Study [place] - ED Test Date: 2016-10-01 Pat Name: CAROL GERMAN Department: Room: - Gender: F Applications System Analyst: jose carlos : 1975 Requested By: RAI Pedersen Order Number: [id number] Reading MD: Moni Niño Measurements Intervals [place] Rate: 76 P: 45 ID: [id number] QRS: 75 QRSD: 101 T: 43 QT: 408 QTc: 459 Interpretive Statements SINUS RHYTHM POSSIBLE RIGHT VENTRICULAR CONDUCTION DELAY INCREASED RATE 06/01/16 Electronically Signed On 10-02-2016 9:12:54 EDT by Moni Niño
--- NOTE | 2016-10-02 09:16 | ECGEPIP ---
Stationary ECG Study [facility] - ED Test Date: 2016-10-01 Pat Name: CAROL GERMAN Department: Room: - Gender: F Human Resources Clerk: MIN : 1975 Requested By: RAI Pedersen Order Number: [id number] Reading MD: Moni Niño Measurements Intervals [place] Rate: 71 P: 38 MT: 163 QRS: 66 QRSD: 91 T: 36 QT: 423 QTc: 462 Interpretive Statements SINUS RHYTHM POSSIBLE RIGHT VENTRICULAR CONDUCTION DELAY SIMILAR 10/01/16 Electronically Signed On 10-02-2016 9:16:16 EDT by Moni Niño
== END 2016-10-01 09:26 | disposition home or self-care (01) ==
LOC: M ED 03:45
DX: R00.2 Palpitations (principal); R07.9 Chest pain, unspecified; E87.6 Hypokalemia

== ENCOUNTER → 2016-10-03 | Outpatient (REF) | payer BC | LOC: M LAB REF 12:18 | PROVIDERS: ATTEND Family Medicine Addiction Medicine | DX: R30.0 Dysuria (principal) ==

== ENCOUNTER → 2016-10-04 | Outpatient (CLI) | payer BC, SELFPAY ==
[2016-10-04 10:43] LABS: ALBUMIN 3.8 GM/DL (3.2-5.2); ALBUMIN/GLOBULIN RATIO 1.09 (1.00-1.93); ALKALINE PHOSPHATASE 94 U/L (45-117); ALT/SGPT 44 U/L (12-78); ANION GAP 9 MEQ/L (8-16); AST/SGOT 20 U/L (15-37); BILIRUBIN,TOTAL 0.6 MG/DL (0.2-1.0); BLOOD UREA NITROGEN 9 MG/DL (7-18); CALCIUM LEVEL 8.4 MG/DL (8.5-10.1); CARBON DIOXIDE LEVEL 26 MEQ/L (21-32); CHLORIDE LEVEL 105 MEQ/L (98-107); CHOLESTEROL LEVEL 170 MG/DL (<200); CREATININE FOR GFR 0.76 MG/DL (0.55-1.02); GLOMERULAR FILTRATION RATE > 60.0 (>58); GLUCOSE, FASTING 89 MG/DL (70-105); POTASSIUM SERUM 3.8 MEQ/L (3.5-5.1); SODIUM LEVEL 140 MEQ/L (136-145); TOTAL PROTEIN 7.3 GM/DL (6.4-8.2); TRIGLYCERIDES LEVEL 144 MG/DL (<150)
== END ==
LOC: M LAB 08:48
PROVIDERS: ATTEND Family Medicine Addiction Medicine
DX: E11.9 Type 2 diabetes mellitus without complications (principal)